=== PATIENT | male | born 2000 | race Caucasian/White ===

== ENCOUNTER 2022-06-28 21:54 | Emergency (ER) | payer OTHER, SELFPAY ==
[2022-06-28 22:02] VITALS: BP 131/78; PULSE 94; RESP 18; TEMP 37; O2SAT 98; BMI 32.5
--- NOTE | 2022-06-28 22:46 | DI.US.S_ITS ---
PROCEDURE: US SCROTUM INDICATIONS: BILATERAL PAIN, SWELLING WITHOUT INJURY TECHNIQUE: Real-time scanning was performed of the scrotum and testicles, with image documentation. Color and pulse Doppler interrogation was performed of both testicles. COMPARISON: None. FINDINGS: Right: Testicle measures 4.9 x 2.5 x 2.6 cm and appears homogenous in echotexture. Epididymis is normal in overall size and morphology. No hydrocele or varicoceles. Overlying scrotal skin demonstrates thickening, measuring up to 0.6 cm. No inguinal hernia identified. Left: Testicle measures 5.1 x 1.8 x 3.4 cm and appears homogeneous in echotexture. Epididymis is normal in overall size and morphology. No hydrocele or varicoceles. Overlying scrotal skin demonstrates thickening, measuring up to 0.6 cm. No inguinal hernia identified. Doppler: Color and pulse Doppler demonstrate normal and symmetric arterial flow in both testicles. IMPRESSION: 1. Bilateral abnormal scrotal skin thickening is nonspecific and the differential includes cellulitis or anasarca among other etiologies. Recommend correlation clinically. 2. No definite acute testicular abnormality. Dictated by: Ashutosh Castillo M.D. on 06/28/2022 at 23:49 Approved by: Ashutosh Castillo M.D. on 06/28/2022 at 23:52
--- NOTE | 2022-06-28 22:48 | ED.MALEGU ---
HPI - Male Genitourinary General Chief complaint: Urogenital-Male Stated complaint: Swollen testicles Time Seen by Provider: 06/28/22 22:02 Source: patient and family Mode of arrival: Ambulatory History of Present Illness HPI Narrative: 21-year-old male nonsmoker with noncontributory medical history presents with his significant other and a chief complaint of what he describes as a relatively sudden onset pain and swelling in his bilateral testicles a few hours ago. He denies any trauma or injury. He denies any heavy lifting. He is had no fever or chills and has no difficulty with bowel movements or with urinating. He is sexually active but denies any penile discharge or drainage. He denies any history of the same. His pain is worse with motion and improves with rest. Related Data Previous Rx's Medication Instructions Recorded cephalexin 500 mg capsule 500 mg PO Q6H 7 days #28 caps 06/29/22 Allergies Allergy/AdvReac Type Severity Reaction Status Date / Time No Known Allergies Allergy Verified 06/29/22 00:25 Review of Systems Review of Systems Narrative: GENERAL: Denies chills, fatigue, malaise, fever, sweats. HEENT: Denies sinus pain, ear pain, sore throat, difficulty swallowing, dizziness. RESPIRATORY: Denies dyspnea, cough, wheezing, hemoptysis, sputum. CARDIOVASCULAR: Denies chest pain, palpitations, orthopnea, edema, GASTROINTESTINAL: Denies nausea, vomiting, abdominal pain, diarrhea, constipation, melena. : See HPI MUSCULOSKELETAL: denies weakness, joint pain, or bony pain SKIN: Denies rash, skin lesions, or other NEUROLOGIC: Denies weakness, headache, numbness, change in speech, confusion, seizures, incoordination. PSYCHIATRIC: No concerning psychosocial issues. 12 point review of systems is negative except for those stated above Patient History tobacco type: smokeless tobacco alcohol intake frequency: a few times a week Alcohol type: beer, wine and hard liquor Substance Use Type: marijuana Exam Narrative Exam Narrative: GENERAL: [21] year old patient appears stated age. Well-developed patient, in mild distress. HEAD: Atraumatic. Normocephalic. EYES: Pupils equal round and reactive. Extraocular motions intact. No scleral icterus. No injection or drainage. ENT: Nose without bleeding, purulent drainage. Throat without erythema, tonsillar hypertrophy or exudate. Airway patent. NECK: Trachea midline. Non tender CARDIOVASCULAR: Regular rate and rhythm without murmurs, gallops, or rubs. RESPIRATORY: Clear to auscultation. Breath sounds equal bilaterally. No wheezes, rales, or rhonchi. GASTROINTESTINAL: Abdomen soft, non-tender, nondistended. : scrotal swelling and tenderness on exam, no discoloration, or induration. No obvious hernia. Examined while standing EXTREMITIES: No edema or joint tenderness. BACK: Nontender without deformity or crepitance. No flank tenderness. NEURO: AOx3. SKIN: No rash or erythema of visible areas Initial Vital Signs Initial Vital Signs: Vital Signs Temperature 98.6 F 06/28/22 22:02 Pulse Rate 94 H 06/28/22 22:02 Respiratory Rate 18 06/28/22 22:02 Blood Pressure 131/78 06/28/22 22:02 Pulse Oximetry 98 06/28/22 22:02 Oxygen Delivery Method Room Air 06/28/22 22:02 Course Orders Ordered: ED Orders 06/28/22 22:31 Chlamydia Gonorrhea PCR -URINE Stat 06/28/22 22:46 US scrotum Stat Discontinued Medications Cefazolin Sodium (Cephalexin 250 Mg Cap Prepack) 1 bottle MISC SEEINSTR ONE Stop: 06/29/22 00:23 Last Admin: 06/29/22 00:30 Dose: 1 bottle Documented By: Vital Signs Vital signs: Vital Signs - 8 hr 06/29/22 00:33 Pulse Rate 93 H Respiratory Rate 16 Blood Pressure 113/56 L Pulse Oximetry 97 Oxygen Delivery Method Room Air MDM - Male Genitourinary Lab Data Labs: Lab Results 06/28/22 Range/Units 22:31 Ur Chlamydia DNA (PCR) Not detected N gonorrhoeae DNA (PCR) Not detected Urine Dip Bedside Urine Glucose Negative Bedside Urine Bilirubin - Negative Bedside Urine Ketone - Negative Urine Specific [place] 1.015 Bedside Urine Occult Blood - Negative Bedside Urine pH 6.0 Bedside Urine Protein - Negative Bedside Urine Urobilinogen 0.2mg/dl Bedside Urine Nitrite - Negative Bedside Urine Leukocytes - Negative Esterase Discharge Plan Departure Patient Disposition: Home Clinical Impression: Cellulitis of scrotum Instructions: DI for Cellulitis -- Adult Activity Restrictions/Additional Instructions: *You have been diagnosed with [scrotal cellulitis. As we discussed your history and physical exam are reassuring, urine shows no signs of infection and ultrasound demonstrates no significant abnormal findings other than a thickened scrotal wall consistent with cellulitis.] *What to do: *Please continue to take your regular medications as directed. [x ] New medication prescriptions sent to your pharmacy: [[facility] in [place] ] [ ] New medication written as a paper prescription [ ] No new medications given *Please follow up with your primary care provider in 2-3 days, call for an appointment. Let them know you were seen in the Emergency Department and that we ask that you be seen in follow up. We will electronically transmit a record of today's note if your PCP is in our system *If you do not have a primary care provider please contact the [facility] Resource line at [phone]. They will ask some questions about your medical history and help get you set up with a doctor in the community. * as we discussed I have also included the contact information for Dr. Edouard with the local urology clinic. Please call their office later today, let them know that you were seen in the emergency department and we would like you seen in follow-up. I will electronically transmitted a copy of today's note *Return to Emergency Department if you should have any new, worsening or concerning symptoms, such as [fever greater than 101 F, shaking chills, worsening pain, persistent vomiting or other bothersome symptoms] Prescriptions: New cephalexin 500 mg capsule 500 mg PO Q6H 7 Days Qty: 28 0RF Referrals: Ella Edouard MD [Physician] - Stand Alone Forms: Patient Portal/API
[2022-06-29 00:05] LABS: Urine N gonorrhoeae NOT DETECTED
[2022-06-29] MEDS: cephALEXin 250 MG CAP PREPACK 1 BOTTLE MISC (00:30)
[2022-06-29 00:33] VITALS: BP 113/56; PULSE 93; RESP 16; O2SAT 97
[2022-06-29 00:39] LABS: Urine Chlamydia NOT DETECTED
== END 2022-06-29 00:33 | disposition home or self-care (01) ==
PROVIDERS: Emergency Provider Emergency Medicine
DX: N49.2 Inflammatory disorders of scrotum (principal)
CPT/HCPCS: 76870; 81003; 87491; 87591; 99282; 99283